=== PATIENT | male | born 1985 | race Caucasian/White ===

== ENCOUNTER 2023-08-21 13:58 | Emergency (ER) | payer BC ==
[2023-08-21 14:17] VITALS: BP 118/79; PULSE 72; RESP 18; TEMP 98.6; BMI 21.2
[2023-08-21 15:07] LABS: INR 1.1 (0.83-1.09); PROTHROMBIN TIME (PATIENT) 12.5 SEC (9.7-13.0)
[2023-08-21 15:18] LABS: HEMATOCRIT 45.2 % (35.4-49); HEMOGLOBIN 15.6 G/dL (11.7-16.9); MCH 31.3 pg (25.7-33.7); MCHC 34.4 g/dl (32.0-35.9); MEAN PLT VOLUME 7.8 fl (7.5-11.1); PLATELET COUNT 239.9 10^3/uL (134-434); RBC 4.97 10^6/uL (4.00-5.60); RDW 12.9 % (11.9-15.9); WHITE BLOOD COUNT 5.8 10^3/uL (4.0-10.8)
[2023-08-21 15:22] LABS: ALBUMIN 4.9 g/dl (3.4-5.0); BILIRUBIN,TOTAL 0.7 mg/dl (0.2-1); CALCIUM 9.8 mg/dl (8.5-10.1); CREATININE 0.8 mg/dl (0.6-1.3); POTASSIUM 3.6 mmol/L (3.5-5.1); TOT PROT 7.1 g/dl (6.4-8.2)
[2023-08-21 15:24] LABS: PLATELET ESTIMATE ADEQUATE
== END 2023-08-21 16:31 | disposition home or self-care (01) ==
LOC: FER 13:58
DX: K62.5 Hemorrhage of anus and rectum (principal)
CPT/HCPCS: 36415; 80053; 82272; 85027; 85610; 99283-25